=== PATIENT | male | born 1950 | race Caucasian/White ===

== ENCOUNTER 2018-07-24 13:09 | Outpatient (CLI) | payer MEDICARE, OTHER ==
--- NOTE | 2018-07-24 14:37 | Ultrasound Report ---
Reason: DISORDER OF THYROID, MALIASE Procedure Date: 07/24/2018 Accession Number: [id number] / [id number] Procedure: US - Head or Neck Soft Tissue CPT Code: FULL RESULT: EXAM: THYROID ULTRASOUND EXAM DATE: 07/24/2018 01:56 PM. CLINICAL HISTORY: DISORDER OF THYROID, malaise. COMPARISON: None. TECHNIQUE: Real time sonographic imaging of the thyroid was performed by the bar host/hostess. Multiple front desk representative static images were saved for review. FINDINGS: THYROID GLAND: Right Lobe: 5.5 x 2.3 x 3.3 cm, volume 21.8 cc. Normal background echotexture. Right Lobe Nodules: In the upper pole, there is a 0.5 x 0.3 x 0.5 cm partially cystic nodule. In the medial midportion adjacent to isthmus, there is a nodule containing calcifications measuring 0.3 x 0.4 x 0.3 cm. In the mid lateral aspect of the right thyroid lobe, there is a 0.6 x 0.5 x 0.4 cm solid nodule with calcifications demonstrating shadowing. Left Lobe: 5.2 x 2.0 x 2.3 cm, volume 12.5 cc. Normal background echotexture. Left Lobe Nodules: None. Isthmus: 0.5 cm AP. Isthmic Nodules: None. LYMPH NODES: No adenopathy demonstrated in the central or lateral compartment. OTHER: None. IMPRESSION: 1. Indeterminate, subcentimeter right thyroid lobe nodules described above. Short-term follow-up recommended to assess for growth. 2. Unremarkable isthmus and left thyroid lobe. Management recommendations are based on 2015 [employer] Management Guidelines for Adult Patients with Thyroid Nodules and Differentiated Thyroid Cancer. RADIA
== END 2018-07-24 13:10 | disposition home or self-care (01) ==
LOC: DI 13:09
PROVIDERS: ATTEND Internal Medicine
DX: E04.2 Nontoxic multinodular goiter (principal)
CPT/HCPCS: 76536

== ENCOUNTER 2018-11-06 09:47 | Emergency (ER) | payer MEDICARE, OTHER ==
[2018-11-06 09:57] VITALS: BP 150/82
--- NOTE | 2018-11-06 12:47 | ED Physician Documentation ---
History of Present Illness - Stated complaint Stated Complaint: POSSIBLE HIGH BLOOD PRESSURE - Chief complaint Chief Complaint: General - History obtained from History obtained from: Patient, Family - History of Present Illness Timing: Today - Additonal information Additional information: 68-year-old male is taking his blood pressure this morning when he developed a frontal headache and found that it was markedly elevated with a diastolic over 120. He is come to the emergency department now for evaluation. He did take his blood pressure medicine before coming to the emergency department. He usually takes it a bit earlier in the morning. He does have a history of alcohol consumption on a regular basis he does not believe he was in withdrawal at the time. Review of Systems Constitutional: denies: Fever Eyes: denies: Decreased vision Ears: denies: Ear pain Nose: denies: Congestion Throat: denies: Sore throat Cardiac: denies: Chest pain / pressure, Palpitations Respiratory: denies: Dyspnea, Cough GI: denies: Abdominal Pain, Nausea, Vomiting : denies: Dysuria, Frequency Skin: denies: Rash Musculoskeletal: reports: Extremity swelling Neurologic: reports: Headache. denies: Generalized weakness, Focal weakness, Numbness, Head injury, LOC PD PAST MEDICAL HISTORY - Past Medical History Past Medical History: Yes Cardiovascular: Hypertension, Deep vein thrombosis, Other Respiratory: Asthma GI: None HEENT: None Psych: Claustrophobia Musculoskeletal: Osteoarthritis Derm: None - Past Surgical History Past Surgical History: Yes Ortho: Knee replacement, Rotator cuff repair Cardiovascular: Other HEENT: Cataracts - Present Medications Home Medications: Ambulatory Orders Medication Instructions Recorded Confirmed [facility] His B6,12 And 1 tab PO BID 01/31/16 10/28/16 Folic Acid Meloxicam 10 mg PO DAILY 01/31/16 10/28/16 Triamterene/Hydrochlorothiazid 1 tab PO DAILY 01/31/16 10/28/16 [Triamterene-Hctz 37.5-25 mg Tb] Zolpidem [Ambien] 5 - 10 mg PO DAILY PM PRN 01/31/16 10/28/16 oxyCODONE [Roxicodone] 30 mg PO TID 01/31/16 10/28/16 Aspirin [Aspirin EC] 81 mg PO DAILY 10/28/16 10/28/16 Pyridoxine HCl (Vitamin B6) [B-6] 100 mg PO BID 10/28/16 10/28/16 Losartan [Cozaar] 50 mg PO DAILY 11/06/18 11/06/18 Pentoxifylline 400 mg ORAL BID 11/06/18 11/06/18 - Allergies Allergies/Adverse Reactions: Allergies Allergy/AdvReac Type Severity Reaction Status Date / Time adhesive tape Allergy Rash Verified 11/06/18 09:57 doxycycline Allergy Unknown Verified 11/06/18 09:56 erythromycin base Allergy Unknown Verified 11/06/18 09:56 - Social History Does the pt smoke?: No Smoking Status: Never smoker PD ED PE NORMAL - Vitals Vital signs reviewed: Yes (tachy and hypertensive mild ) - General General: Alert and oriented X 3, No acute distress, Well developed/nourished - HEENT HEENT: Atraumatic, PERRL, EOMI - Neck Neck: Supple, no meningeal sign - Respiratory Respiratory: No respiratory distress - Back Back: No CVA TTP, No spinal TTP - Derm Derm: Normal color, Warm and dry, No rash - Extremities Extremities: No deformity, Other (There is peripheral edema bilaterally ) - Neuro Neuro: No motor deficit, No sensory deficit, Normal speech Eye Opening: Spontaneous Motor: Obeys Commands Verbal: Oriented GCS Score: 15 - Psych Psych: Normal mood, Normal affect Results - Vitals Vitals: Vital Signs - 24 hr 11/06/18 09:54 Temperature 36.1 C L Heart Rate 110 H Respiratory 18 Rate Blood Pressure 150/82 H O2 Saturation 97 Oxygen O2 Source Room air Procedures - IVC sono (time) 1235 Bedside IVC sono: IVC measures (cm) (1.89), IVC collapsed c insp (cm) (1.10), Euvolemia PD MEDICAL DECISION MAKING - ED course Complexity details: reviewed results, re-evaluated patient, considered differential, d/w patient, d/w family ED course: 68-year-old male has come to the emerge department with a chief complaint of hypertension and on arrival to the emergency department he is found that his blood pressure while hypertensive is not malignant. He compared his cuff to our cuff here and found it reads much higher. He is encouraged to be compliant with his usual medication and he is found to be euvolemic on interrogation of the inferior vena cava. No specific additional therapy is indicated at the time. I did discuss with the patient regular alcohol use and periodic spikes in blood pressure related to daily withdrawal. Departure - Departure Disposition: 01 Home, Self Care Clinical Impression: Hypertension Qualifiers: Hypertension type: unspecified Qualified Code(s): I10 - Essential (primary) hypertension Condition: Stable Instructions: ED HTN Established Follow-Up: Deejay Mcmanus MD [Primary Care Provider] - Discharge Date/Time: 11/06/18 12:51
== END 2018-11-06 12:51 | disposition home or self-care (01) ==
LOC: ED 09:47
DX: I10 Essential (primary) hypertension (principal); Z79.82 Long term (current) use of aspirin
CPT/HCPCS: 99282; 99284

== ENCOUNTER 2020-04-05 16:41 | Outpatient (CLI) | payer MEDICARE, OTHER ==
--- NOTE | 2020-04-06 09:58 | Ultrasound Report ---
PROCEDURE: Head or Neck Soft Tissue INDICATIONS: RT SIDED NODULES TECHNIQUE: Real time scanning was performed of the neck region of interest, with image documentation . COMPARISON: None. FINDINGS: No soft tissue neck abnormality seen bilaterally near the thyroid lobes. No left-sided thy roid nodule. Within the right thyroid lobe to superior nodules are present both lateral and medial an d at the mid right thyroid lobe there is a lateral small nodule also, none of which have significantl y changed in size measuring 3 x 5 x 5 mm superiorly, laterally. The more medial superior right nodule measures 3 x 2 x 3 mm. The mid lateral right thyroid nodule measures 6 x 5 x 5 mm. The lateral mid right thyroid nodule is assigned 1, wider than tall, solid, hyperechoic, irregular in margination with several macrocalcifications and punctate calcifications. This yields a total scorin g value of 6, category 4, moderately suspicious, and given small size and absence of resource recovery specialist time no definite follow-up is recommended. If clinically desired a follow-up in 3 years could be obtained . The superior lateral nodule is assigned nodule 2, is wider than tall, spongiform in composition, hypo echoic, smoothly marginated without internal calcifications. This yields a scoring value of 0, withou t recommendation for follow-up. The superior medial nodule is assigned nodule #3, wider than tall, solid in composition, hyperechoic, irregular in margination with macrocalcifications. This yields a categorization score of 4, total po ints of 6, and given small size no additional follow-up is recommended. If clinically desired a follo w-up thyroid ultrasound in 3 years could be obtained. IMPRESSION: No definite resource recovery specialist time with reference to the prior study of 07/24/2018. Each of the nodules is l ess than 1 cm in diameter and has not enlarged. No specific follow-up is recommended based on the "TI RADS categorization score" but if clinically desired follow-up in 3 years be obtained. Reviewed by: Danny Farris MD on 04/06/2020 9:57 AM PST Approved by: Danny Farris MD on 04/06/2020 9:57 AM PST Station ID: [id number]
== END 2020-04-05 16:42 | disposition home or self-care (01) ==
LOC: DI 16:41
PROVIDERS: ATTEND Internal Medicine
DX: E04.2 Nontoxic multinodular goiter (principal)

== ENCOUNTER 2021-06-21 16:31 | Outpatient (CLI) | payer MEDICARE, OTHER ==
--- NOTE | 2021-06-22 03:12 | Ultrasound Report ---
PROCEDURE: Bladder INDICATIONS: UNSP SYMPTOMS AND SIGNS INVOLVING THE GENITROURINA TECHNIQUE: Real-time scanning was performed of the kidneys and bladder, with image documentation. COMPARISON: CT abdomen and pelvis 11/04/2019. FINDINGS: Bladder: Pre-void bladder volume is 169 mL. Post-void residual is 69 mL. Pre-void images demonstra te no intraluminal masses or stones. On pre-void images, bilateral ureteral jets are noted with colo r Doppler interrogation. Miscellaneous: The prostate is enlarged and measures approximate 4.9 x 4.1 x 5.8 cm corresponding to estimated prostatic volume of 60 mL. No free pelvic fluid. IMPRESSION: 1. Postvoid residual volume of 69 mL. Reviewed by: Rodrick Kelly MD on 06/22/2021 3:11 AM PDT Approved by: Rodrick Kelly MD on 06/22/2021 3:11 AM PDT Station ID: [id number]
== END 2021-06-21 16:32 | disposition home or self-care (01) ==
LOC: DI 16:31
PROVIDERS: ATTEND Internal Medicine
DX: R39.9 Unspecified symptoms and signs involving the genitourinary system (principal)

== ENCOUNTER 2021-08-08 09:52 | Outpatient (CLI) | payer MEDICARE, OTHER ==
--- NOTE | 2021-08-08 10:29 | XRAY Report ---
PROCEDURE: Foot 3 View LT INDICATIONS: ACQUIRED DEFORMITY OF LEFT FOOT TECHNIQUE: 3 views of the foot were acquired. COMPARISON: None. FINDINGS: BONES: No acute, displaced fracture. Hallux valgus deformity with osteophytosis of the hallux sesamoi ds. Calcaneal enthesophytes. Moderate productive change with joint space loss about the midfoot, santiago sing concern for neuropathic change. SOFT TISSUES: Calcific soft tissue density adjacent to the first MTP, concerning for bursitis or buni on formation. Focal dorsal soft tissue swelling overlying the midfoot. IMPRESSION: 1.No acute, displaced fracture. 2.Degenerative changes of the foot as detailed above. Reviewed by: Rosalino Guerra MD on 08/08/2021 10:28 AM PDT Approved by: Rosalino Guerra MD on 08/08/2021 10:28 AM PDT Station ID: [id number]
== END 2021-08-08 09:53 | disposition home or self-care (01) ==
LOC: DI 09:52
PROVIDERS: ATTEND Internal Medicine
DX: M19.072 Primary osteoarthritis, left ankle and foot (principal); M20.12 Hallux valgus (acquired), left foot

== ENCOUNTER 2022-05-06 14:52 | Outpatient (CLI) | payer MEDICARE, OTHER ==
--- NOTE | 2022-05-06 21:54 | XRAY Report ---
PROCEDURE: Lumbar Spine 2 View INDICATIONS: LOWER BACK PAIN TECHNIQUE: 2 views of the lumbar spine were acquired. COMPARISON: CT abdomen pelvis 11/04/2019 FINDINGS: Bones: 5 [id number] vertebrae are present. Left convexity curvature of the lumbar spine center ed at L3. Severe multilevel degenerative changes present with disc height loss, endplate spurring, fa cet arthropathy. Curvature of the spine makes evaluation difficult. No definite vertebral body compre ssion fractures. No suspicious bony lesions. Soft tissues: Overlying bowel gas pattern is normal. No suspicious soft tissue calcifications. IMPRESSION: Severe lumbar spine degenerative changes as before. Reviewed by: Moise Zarate MD on 05/06/2022 9:53 PM PST Approved by: Moise Zarate MD on 05/06/2022 9:53 PM PST Station ID: [id number]
== END 2022-05-06 14:53 | disposition home or self-care (01) ==
LOC: DI 14:52
PROVIDERS: ATTEND Internal Medicine
DX: M47.816 Spondylosis without myelopathy or radiculopathy, lumbar region (principal); M51.36 Other intervertebral disc degeneration, lumbar region

== ENCOUNTER 2023-04-20 13:12 | Emergency (ER) | payer MEDICARE, OTHER ==
[2023-04-20 13:30] VITALS: O2SAT 100
[2023-04-20] MEDS ORDERED: LIDOCAINE 1%-EPI 1:100000 20 ML MDV SUBQ STA (13:31)
--- NOTE | 2023-04-20 13:32 | ED Physician Documentation ---
PD HPI UPPER EXT INJURY - Stated complaint Stated Complaint: LT ELBOW PX - Chief complaint Chief Complaint: Trauma Ext - History obtained from History obtained from: Patient (72-year-old gentleman fell directly on his elbow 2 days ago and has had progressive swelling of it since. No other injuries.) PD PAST MEDICAL HISTORY - Past Medical History Past Medical History: Yes Cardiovascular: Hypertension, Deep vein thrombosis, Other Respiratory: Asthma GI: None HEENT: None Psych: Claustrophobia Musculoskeletal: Osteoarthritis Derm: None - Past Surgical History Past Surgical History: Yes Ortho: Knee replacement, Rotator cuff repair Cardiovascular: Other HEENT: Cataracts - Present Medications Home Medications: Ambulatory Orders Medication Instructions Recorded Confirmed [facility] Where He Gets His B6,12 And 1 tab PO BID 01/31/16 10/28/16 Folic Acid Meloxicam 10 mg PO DAILY 01/31/16 10/28/16 Triamterene/Hydrochlorothiazid 1 tab PO DAILY 01/31/16 10/28/16 [Triamterene-Hctz 37.5-25 mg Tb] Zolpidem [Ambien] 5 - 10 mg PO DAILY PM PRN 01/31/16 10/28/16 oxyCODONE [Roxicodone] 30 mg PO TID 01/31/16 10/28/16 Aspirin [Aspirin EC] 81 mg PO DAILY 10/28/16 10/28/16 Pyridoxine HCl (Vitamin B6) [B-6] 100 mg PO BID 10/28/16 10/28/16 Losartan [Cozaar] 50 mg PO DAILY 11/06/18 11/06/18 Pentoxifylline 400 mg ORAL BID 11/06/18 11/06/18 - Allergies Allergies/Adverse Reactions: Allergies Allergy/AdvReac Type Severity Reaction Status Date / Time adhesive tape Allergy Rash Verified 04/20/23 13:23 doxycycline Allergy Unknown Verified 04/20/23 13:23 erythromycin base Allergy Unknown Verified 04/20/23 13:23 - Social History Does the pt smoke?: No Smoking Status: Never smoker Does the pt drink ETOH?: Yes ETOH Use: Liquor Does the pt have substance abuse?: No - Immunizations Immunizations are current?: Yes PD ED PE NORMAL - Vitals Vital signs reviewed: Yes - General General: Alert and oriented X 3, No acute distress - Extremities Extremities: Other (Swollen fluctuance left olecranon bursa consistent with hemorrhage into the bursa. Full range of motion of the elbow.) - Neuro Neuro: Alert and oriented X 3, Normal speech Results - Vitals Vitals: Vital Signs - 24 hr 04/20/23 04/20/23 13:19 14:51 Temperature 36 C L 36.5 C Heart Rate 79 80 Respiratory 16 16 Rate Blood Pressure 158/78 H 140/80 H O2 Saturation 100 100 Oxygen O2 Source Room air - Labs Labs: Microbiology 04/20/23 13:45 Body Fluid Culture - Preliminary Synovial Fluid Laboratory Tests 04/20/23 04/20/23 13:45 13:45 Fluid Source SYNOVIAL Fluid Color BLOODY Fluid Clarity BLOODY Fluid WBC 26697 Fluid RBC 15428 Fluid Neutrophils % 91 Fluid Lymphocytes % 9 Fluid Crystals MONOSODIUM URATE - Rads (name of study) Left elbow x-ray read as normal by the radiologist, but it looks like he has olecranon spur with a fracture in it to me. Relevant Findings:: Final report received, EMP independent interpretation of test Procedures - General procedure General procedure: After verbal informed consent the left elbow was prepped and draped in sterile fashion, infiltrated locally with lidocaine with epinephrine and then an 18- gauge needle was used to access the left Vernonia bursa. 20 mL of bloody serous fluid was obtained, it was less bloody than I would have expected from a traumatic injury, i.e. it was not opaque. It was sent for cell count, crystal exam and culture. A dressing was placed and he tolerated this very well. PD Medical Decision Making - ED course Complexity details: reviewed results (Initial Gram stain of the fluid was n egative, cell count demonstrating a bloody fluid with neutrophilic predominance and uric acid crystals.) ED course: He has bleeding into the left olecranon bursa that is traumatic. We discussed conservative care versus needle aspiration versus I&D and the pros and cons of both and he would like to trial needle aspiration. 72-year-old gentleman with a fall and isolated left elbow injury. He did have olecranon bursitis which I originally thought would be probably hemorrhagic, but a needle aspiration was done and was more of a bloody serous fluid. It was sent for the usual studies. An x-ray was done which to my eye does show a little chip fracture off the olecranon and given that it seems pretty minor and his arm extension strength is intact I think he can avoid full mobilization and he was placed in a sling pending orthopedic follow-up. Subsequent to discharge I did discuss the difference of opinion and my x-ray read versus the radiologist. I called the patient and still recommended orthopedic follow-up as a "tie breaker". And also discussed the uric acid crystals in the synovial fluid. He did have a single episode of gout in his big toe 40 years ago and discussed that at least part of the inflammation today was related to a gout flare as well. He voiced understanding. Departure - Departure Disposition: 01 Home, Self Care Clinical Impression: Olecranon bursitis of left elbow, Olecranon fracture Condition: Stable Record reviewed to determine appropriate education?: Yes Instructions: ED Bursitis, ED Fx Upper Ext Follow-Up: [facility] [Provider Group] Comments: As discussed, you do have a minor fracture of the left olecranon process which I do not believe will need anything specific but I do encourage you to follow-up with an orthopedic surgeon, there is a local number on this form, or you can follow-up with the group you have more experience with. If you do follow-up with the other group, make sure to take the copy of the x-ray on CD with you to that appointment. I do not think it needs full immobilization right now given the minor nature of the fracture but do try to keep a compression dressing on and sling as discussed. Mobic/meloxicam as you mention would be very appropriate. Forms: PCP List Discharge Date/Time: 04/20/23 14:45
--- NOTE | 2023-04-20 14:53 | XRAY Report ---
PROCEDURE: Elbow 3+V LT INDICATIONS: elbow inj TECHNIQUE: 3 views of the elbow were acquired. COMPARISON: None. FINDINGS: Bones: No fractures or dislocations. No suspicious bony lesions. Soft tissues: No effusion. No suspicious soft tissue calcifications or masses. IMPRESSION: No acute fracture. No osseous lesion. If symptoms and/or clinical suspicion for pathology continue, f urther assessment with repeat plain films, or advanced imaging (e.g., CT, MRI, or bone scan) is recom mended for further assessment. Reviewed by: Lele Mills MD on 04/20/2023 2:52 PM PST Approved by: Lele Mills MD on 04/20/2023 2:52 PM PST Station ID: [id number]
[2023-04-20 14:59] VITALS: BP 140/80
[2023-04-20 15:28] LABS: BF SOURCE SYNOVIAL; CC,BF RBC 84000 /mm^3; CC,BF WBC 14290 /mm^3; LYMPHOCYTES %,BODY FLUID 9 %; NEUTROPHILS %, BF 91 %
[2023-04-20 15:29] LABS: BF CLARITY BLOODY; BF COLOR BLOODY
== END 2023-04-20 14:45 | disposition home or self-care (01) ==
LOC: ED 13:12
DX: S52.023A Displaced fracture of olecranon process without intraarticular extension of unspecified ulna, initial encounter for closed fracture (principal); W19.XXXA Unspecified fall, initial encounter; I10 Essential (primary) hypertension; M70.22 Olecranon bursitis, left elbow
CPT/HCPCS: 20605; 87070; 87205; 89051; 89060; 99284

== ENCOUNTER 2023-07-23 10:57 | Outpatient (CLI) | payer MEDICARE, OTHER ==
--- NOTE | 2023-07-23 13:56 | XRAY Report ---
PROCEDURE: Cervical Spine 2-3V INDICATIONS: LEFT ARM PARASTHESIA TECHNIQUE: 3 view(s) of the cervical spine were acquired. COMPARISON: None. FINDINGS: Bones: No fractures or dislocations to the C7-T1 level. The lateral masses of C1 appear intact on t he odontoid view. No suspicious bony lesions. Multilevel degenerative disc space narrowing most sev ere at C5-6, C6-7. Prominent anterior bridging osteophytes are present. Multilevel uncovertebral arth ropathy is present. Soft tissues: No prevertebral soft tissue swelling. IMPRESSION: Prominent multilevel degenerative changes including uncovertebral arthropathy and anterior osteophyte s. Reviewed by: Orly Juarez MD on 07/23/2023 1:54 PM PDT Approved by: Orly Juarez MD on 07/23/2023 1:54 PM PDT Station ID: [id number]
== END 2023-07-23 10:58 | disposition home or self-care (01) ==
LOC: DI 10:57
PROVIDERS: ATTEND Internal Medicine
DX: R20.2 Paresthesia of skin (principal); M47.812 Spondylosis without myelopathy or radiculopathy, cervical region; M25.78 Osteophyte, vertebrae